=== PATIENT | female | born 1945 ===

== ENCOUNTER 2018-12-13 08:45 | Outpatient (CLI) | payer OTHER | END 2018-12-13 23:59 | disposition home or self-care (01) | LOC: CARD DIAG 08:45 | PROVIDERS: ATTEND Internal Medicine Critical Care Medicine | DX: I08.1 Rheumatic disorders of both mitral and tricuspid valves (principal); J96.00 Acute respiratory failure, unspecified whether with hypoxia or hypercapnia | CPT/HCPCS: 93306 ==